=== PATIENT | male | born 1950 | race Caucasian/White ===

== ENCOUNTER 2017-11-20 12:45 | Inpatient (IN) | payer OTHER ==
[~2017-11-20] VITALS: Ht 177.8 cm; Wt 131.3 kg
--- NOTE | ~2017-11-20 | CON ---
[place], [place] REPORT OF CONSULTATION NAME: [id number] UNIT #: [id number] ROOM: 528 DOCTOR: NEVA VELÁSQUEZ MD BIRTHDATE: [birth year] DOS: 11/22/2017 HISTORY OF PRESENT ILLNESS: This is a 67-year-old -[place] man with a history of essential hypertension with blood pressure around 140 and 150s at home, diabetes mellitus type 2, asthma, fatty liver, anemia, but he has never had a heart attack, heart failure, rhythm disorder of the heart, cancer, stroke or kidney problems. He quit smoking 20 years ago and does not use alcoholic beverages, lives with his . He usually receives his care from [facility]. He apparently came to the hospital because of increasing shortness of breath of many days, but worse in the preceding 3 days. He had noticed swelling in the legs too, which really bothered him. He sleeps propped up and it is not clear if he has orthopnea or not. He does snore quite a bit at night. He has not had any chest pain or palpitations, dizziness or loss of consciousness. No seizure disorder. HOME MEDICATIONS: Include aspirin 81 daily, atorvastatin 20 daily, carvedilol 25 mg b.i.d., NovoLog and glargine insulin, lisinopril 20 b.i.d., metformin 1 g b.i.d., methadone 5 mg b.i.d. and Flomax 0.4 mg daily. PHYSICAL EXAMINATION: GENERAL: This reveals a patient who is very pleasant, alert, oriented. He is moderately obese. His complexion is fine. NECK: There is no thyromegaly. The thyroid gland is a little difficult to palpate because of short and large neck. JVP is normal. AJR is negative. VITAL SIGNS: Blood pressure 122/48, previous blood pressure was 149/70. CARDIAC: Auscultation with no murmurs or extra heart sounds. He had at least 1+ edema bilaterally and he tells me there is much more so than before he came to the hospital. RESPIRATORY: Breath sounds are diminished because of morbid obesity, but no adventitious sounds are present. DIAGNOSTIC STUDIES: ECG showed normal sinus rhythm at 80 beats per minute with frequent atrial ectopy. ST-T waves are normal. Early RV progression is noted, however. Last night, he had bradycardia and had a 3.8 second pause following PVC or aberrantly conducted P-wave. Chest x-ray was reviewed by me and it does not show any obvious pulmonary edema. Heart is of normal size. LABORATORY DATA: Troponin levels have been less than 0.015. BUN 7 and creatinine 0.97, potassium 4.5. Hemoglobin 11 g/dL. IMPRESSION: 1. Diastolic heart failure is a good possibility in this gentleman. He had an echocardiogram. I believe previous echocardiogram had shown normal left ventricular systolic function. 2. Severe bradycardia and 3.8 second pause through the night is of concern and [place], [place] REPORT OF CONSULTATION NAME: CLEVE GARCIAS UNIT #: [id number] ROOM: 528 DOCTOR: NEVA VELÁSQUEZ MD BIRTHDATE: [birth year] currently heart rate is fine. He had received his full dose of carvedilol. 3. Anemia. RECOMMENDATIONS: 1. IV furosemide is fine for the next day or a couple of days and then he should be on 40 mg p.o. along with potassium supplement. 2. Bradycardia and a 3.8 second pause was probably due to higher dose of beta antionette, therefore, carvedilol is being reduced to 12.5 mg b.i.d. 3. Hypertension, which does not seem to be controlled. Lisinopril is 40 mg daily, this should be continued. If blood pressure stays high in this diabetic, dose of lisinopril can be increased to 60 mg daily. The other alternative would be to use small dose of calcium channel antionette, i.e. amlodipine. I thank you for this consult. NEVA VELÁSQUEZ MD CM:CONSTR:REPORT OF CONSULTATION 1601 12/11/17 1014 interface
--- NOTE | ~2017-11-20 | PR ---
[place], [place] PROGRESS NOTE NAME: CLEVE GARCIAS UNIT #: [id number] ROOM: 528 DOCTOR: MAHIN DOMÍNGUEZ MD BIRTHDATE: [birth year] DOS: 11/24/2017 SUBJECTIVE: The patient examined and discussed with the nursing staff in detail: The patient appears to be comfortable. Heart rate and blood pressure is stable. He denies any chest discomfort, shortness of breath or palpitations. His heart rate is 67 and blood pressure is 123/49. No more evidence of bradycardia after decreasing dose of beta-blockers. Hemodynamically appears to be stable. REVIEW OF SYSTEMS: As per HPI, 6-8 systems reviewed, unchanged. PHYSICAL EXAMINATION: GENERAL: He is alert, oriented x 3. HEENT: Unremarkable. NECK: Supple, no JVD. LUNGS: Clear. HEART: Sounds are regular. ABDOMEN: Soft, nontender. NEUROLOGICAL: He appears to be stable. EXTREMITIES: About 1+ pitting edema. LABORATORY DATA: Sodium 137, potassium 4.4 and creatinine is 1. Hemoglobin 10.8 and hematocrit 35.5. IMPRESSION: Dyspnea on exertion, probable diastolic heart failure, ejection fraction was reported normal. Shortness of breath, diabetes mellitus, chronic obstructive pulmonary disease, hypertension, reactive airway disease, morbid obesity, thoracic disk herniation, anemia, eosinophilia. Cardiac status appears to be stable. Continue the Lasix. Medications have been adjusted. Heart rate is very well controlled now. He is on atorvastatin, Lasix, Protonix, lisinopril. After stopping the beta blockers heart rate has been improved. We will follow up. I reviewed the echocardiogram. Dr. Brown is going to dictate the full dictation of the echo, but preliminarily ejection fraction appears to be well preserved. No significant valvular abnormalities. Mild concentric left ventricular hypertrophy, suggestion of diastolic dysfunction. Please refer to the detailed echo report, which will be done by Dr. Brown. [place], [place] PROGRESS NOTE NAME: CLEVE GARCIAS UNIT #: [id number] ROOM: 528 DOCTOR: MAHIN DOMÍNGUEZ MD BIRTHDATE: [birth year] MAHIN MAGGE, MD CM:PNTRANS [id number] MAHIN DOMÍNGUEZ MD 11/24/17 1113 interface
--- NOTE | ~2017-11-20 | EKG ---
[place], [place] ELECTROCARDIOGRAM REPORT NAME: CLEVE GARCIAS UNIT #: [id number] ROOM: 528 DOCTOR: SEAN DRAFT REPORT BIRTHDATE: [birth year] [facility] Test Date: 2017-11-20 Test Time: 13:14:33 Pat Name: CLEVE GARCIAS Department: Room: 528 Gender: M Electronics Hardware Design Engineer: Windy Connolly : 1950 Requested By: ROSEANNA GLOVER Order Number: [id number] Reading MD: Shireen Brown MD Measurements Intervals [place] Rate: 81 P: -2 AL: 169 QRS: 22 QRSD: 98 T: 48 QT: 374 QTc: 434 Interpretive Statements Sinus rhythm with PACs Abnormal R-wave progression, early transition Electronically Signed On 11-22-2017 12:23:36 PDT by Shireen Brown MD CM:EKGRPT:ELECTROCARDIOGRAM REPORT 1314 1223 ROSEANNA GLOVER EPIPHANY DRAFT REPORT ROSEANNA GLOVER
[~2017-11-20 12:45] MED LIST: ADVAIR 250/501 EA INH; ASPIRIN81 MG PO; AUGMENTIN 875875 MG PO; BACTRIM DS 8001 TA1 PO; CIPRO500 MG PO; DOXYCYCLINE100 M3 PO; DUONEB 3 MG/3 ML3 M1 NEB; FINASTERIDE5 MG PO; FLOMAX0.4 MG PO; FLUTICASON0.05 MG/AC NAS; GLIPIZIDE10 MG PO; GUAIFEN/CODEIN120 ML PO; GUAIFENESIN400 MG PO; LANTUS SOL100 UNIT/1 SQ; LISINOPRIL10 MG PO; LISINOPRIL20 MG PO; LOPRESSOR25 MG PO; METFORMIN1000 MG PO; MORPHINE4 MG PO; MS CONTIN60 MG PO; NEBULIZER DEVI; OMEPRAZOLE20 MG PO; OXYCONTIN40 M1 PO; PREDNISONE10 MG PO; SIMVASTATIN40 MG PO; TERAZOSIN HCL5 M1 PO; TERAZOSIN1 MG PO; VICODIN ES 7501 TAB PO; VITAMIN D2000 IU PO; ZOFRAN ODT4 MG PO
[2017-11-20 12:49] VITALS: BP 142/72
[2017-11-20 13:33] LABS: BASO # 0.1 10*3/uL (0.0-0.1); BASO % 0.6 % (0.0-1.0); EOS # 0.4 10*3/uL (0.0-0.4); EOS % 4.6 % (1.0-4.0); HEMATOCRIT 35.3 % (42.0-52.0); HEMOGLOBIN 10.9 g/dl (14.0-18.0); LYMPH # 1.8 10*3/uL (1.3-4.4); MEAN CELL VOLUME 83.6 fl (80.0-94.0); MEAN CORPUSCULAR HGB 25.8 pg (27.0-31.0); MEAN CORPUSCULAR HGB CONC 30.9 g/dl (33.0-37.0); MEAN PLATELET VOLUME 10.5 fl (9.6-12.3); MONO # 0.8 10*3/uL (0.1-1.0); MONO % 8.9 % (3.0-9.0); NEUT # 5.8 10*3/uL (2.3-7.9); NEUT % 65.4 % (47.0-73.0); PLATELET COUNT AUTOMATED 242 10*3/uL (130-400); RED BLOOD COUNT 4.22 10*6/uL (4.50-5.90); RED CELL DISTRI WIDTH 15.6 % (0-14.5); WHITE BLOOD COUNT 8.8 10*3/uL (4.8-10.8)
[2017-11-20 13:47] LABS: ALBUMIN 3.6 gm/dl (3.1-4.5); ALKALINE PHOSPHATASE 89 U/L (45-117); BUN 17 mg/dl (7-24); CHLORIDE 105 mmol/L (98-107); CREATININE 0.97 mg/dL (0.70-1.30); POTASSIUM 4.5 mmol/L (3.5-5.1); SGOT/AST 22 IU/L (3-35); SGPT/ALT 43 U/L (12-78); SODIUM 140 mmol/L (136-145); TOTAL PROTEIN 7.1 gm/dL (6.4-8.2)
[2017-11-20 13:51] LABS: TROPONIN I < 0.015 ng/ml (<0.045)
[2017-11-20 14:13] VITALS: BP 148/60
[2017-11-20 15:09] VITALS: BP 153/69
[2017-11-20 16:00] VITALS: BP 142/76
[2017-11-20 16:45] VITALS: BP 129/77
[2017-11-20] MEDS ORDERED: ATORVASTATIN CA40 M1 PO (17:17)
[2017-11-20] MEDS ORDERED: CARVEDILOL25 MG PO (17:18)
[2017-11-20] MEDS ORDERED: METHADONE5 MG PO (17:19)
[2017-11-20] MEDS ORDERED: NOVOLOG10 ML SQ (17:27)
[2017-11-20 20:00] VITALS: BP 151/77
[2017-11-21] VITALS: BP 136/77
[2017-11-21 06:23] LABS: BASO % 0.4 % (0.0-1.0); EOS # 0.4 10*3/uL (0.0-0.4); EOS % 5.3 % (1.0-4.0); HEMATOCRIT 35.3 % (42.0-52.0); LYMPH # 1.7 10*3/uL (1.3-4.4); LYMPH % 23.1 % (27.0-41.0); MEAN CELL VOLUME 83.1 fl (80.0-94.0); MEAN CORPUSCULAR HGB 25.9 pg (27.0-31.0); MEAN CORPUSCULAR HGB CONC 31.2 g/dl (33.0-37.0); MEAN PLATELET VOLUME 10.2 fl (9.6-12.3); MONO # 0.8 10*3/uL (0.1-1.0); MONO % 10.6 % (3.0-9.0); NEUT # 4.3 10*3/uL (2.3-7.9); NEUT % 60.2 % (47.0-73.0); PLATELET COUNT AUTOMATED 239 10*3/uL (130-400); RED BLOOD COUNT 4.25 10*6/uL (4.50-5.90); RED CELL DISTRI WIDTH 15.9 % (0-14.5); WHITE BLOOD COUNT 7.2 10*3/uL (4.8-10.8)
[2017-11-21 06:49] LABS: ALBUMIN 3.5 gm/dl (3.1-4.5); ALKALINE PHOSPHATASE 88 U/L (45-117); BUN 20 mg/dl (7-24); CHLORIDE 98 mmol/L (98-107); CHOLESTEROL 105 mg/dL (<200); CREATININE 1.03 mg/dL (0.70-1.30); HDL CHOLESTEROL 46 mg/dl (40-60); LDL CHOLESTEROL 37 mg/dL (9-159); POTASSIUM 3.7 mmol/L (3.5-5.1); SGOT/AST 19 IU/L (3-35); SGPT/ALT 40 U/L (12-78); SODIUM 138 mmol/L (136-145); TOTAL PROTEIN 6.8 gm/dL (6.4-8.2); TRIGLYCERIDES 109 mg/dl (<150); VLDL CHOLESTEROL 22 mg/dL (6-40)
[2017-11-21 06:51] LABS: ACT PARTIAL THROMBO TIME 22.8 SECONDS (20.8-31.5)
[2017-11-21 08:00] VITALS: BP 122/74
[2017-11-21 08:10] VITALS: BP 122/68
[2017-11-21 08:46] LABS: VITAMIN D, 25-HYDROXY 29.1 ng/mL (30-100)
[2017-11-21 12:00] VITALS: BP 100/61
[2017-11-21 16:00] VITALS: BP 152/80
[2017-11-21 20:00] VITALS: BP 154/72; BP 157/70
[2017-11-22] VITALS: BP 149/70
[2017-11-22 12:00] VITALS: BP 122/48
[2017-11-22 16:00] VITALS: BP 139/71
[2017-11-22 20:00] VITALS: BP 125/80
[2017-11-23] VITALS: BP 139/68
[2017-11-23 06:08] LABS: BASO # 0.1 10*3/uL (0.0-0.1); BASO % 0.6 % (0.0-1.0); EOS # 0.4 10*3/uL (0.0-0.4); EOS % 4.8 % (1.0-4.0); HEMATOCRIT 35.5 % (42.0-52.0); HEMOGLOBIN 10.8 g/dl (14.0-18.0); LYMPH # 2.1 10*3/uL (1.3-4.4); MEAN CELL VOLUME 84.5 fl (80.0-94.0); MEAN CORPUSCULAR HGB 25.7 pg (27.0-31.0); MEAN CORPUSCULAR HGB CONC 30.4 g/dl (33.0-37.0); MEAN PLATELET VOLUME 10.4 fl (9.6-12.3); MONO # 0.8 10*3/uL (0.1-1.0); MONO % 10.5 % (3.0-9.0); NEUT # 4.5 10*3/uL (2.3-7.9); NEUT % 57.5 % (47.0-73.0); PLATELET COUNT AUTOMATED 227 10*3/uL (130-400); RED CELL DISTRI WIDTH 15.6 % (0-14.5); WHITE BLOOD COUNT 7.9 10*3/uL (4.8-10.8)
[2017-11-23 06:16] LABS: BUN 25 mg/dl (7-24); CHLORIDE 99 mmol/L (98-107); CREATININE 1.09 mg/dL (0.70-1.30); POTASSIUM 4.4 mmol/L (3.5-5.1); SODIUM 137 mmol/L (136-145)
[2017-11-23 08:00] VITALS: BP 138/60
[2017-11-23 16:00] VITALS: BP 106/61
[2017-11-23 20:00] VITALS: BP 137/58
[2017-11-24] VITALS: BP 123/49
[2017-11-24 08:27] VITALS: BP 144/72
[2017-11-24] MEDS ORDERED: COREG12.5 M1 PO (11:52)
[2017-11-24] MEDS ORDERED: LASIX40 MG PO (11:52)
[2017-11-24] MEDS ORDERED: K-TAB10 MEQ PO (11:52)
== END 2017-11-24 12:34 | disposition home or self-care (01) | DRG 291 ==
LOC: ED 12:45 → 5E 15:12 → EDHOLD 15:12 → 5E 15:54
PROVIDERS: Nurse Practitioner Family; Student in an Organized Health Care Education/Training Program
DX: I11.0 Hypertensive heart disease with heart failure (principal); I50.31 Acute diastolic (congestive) heart failure; E87.2 Acidosis; Z68.41 Body mass index [BMI] 40.0-44.9, adult; J45.20 Mild intermittent asthma, uncomplicated; M51.24 Other intervertebral disc displacement, thoracic region; E66.01 Morbid (severe) obesity due to excess calories; D64.9 Anemia, unspecified; D72.810 Lymphocytopenia; D72.1 Eosinophilia; R00.1 Bradycardia, unspecified; E11.9 Type 2 diabetes mellitus without complications; J44.9 Chronic obstructive pulmonary disease, unspecified; Z79.82 Long term (current) use of aspirin; Z79.84 Long term (current) use of oral hypoglycemic drugs; Z79.899 Other long term (current) drug therapy; Z87.01 Personal history of pneumonia (recurrent); Z98.52 Vasectomy status; Z83.3 Family history of diabetes mellitus

== ENCOUNTER → 2017-12-31 | Outpatient (CLI) | payer MEDICARE ==
[~2017-12-31] MED LIST changes: +ATORVASTATIN CA40 M1 PO; +CARVEDILOL25 MG PO; +COREG12.5 M1 PO; +K-TAB10 MEQ PO; +LASIX40 MG PO; +METHADONE5 MG PO; +NOVOLOG10 ML SQ
== END | disposition home or self-care (01) ==
LOC: US 09:50
DX: K80.20 Calculus of gallbladder without cholecystitis without obstruction (principal); K76.0 Fatty (change of) liver, not elsewhere classified; I11.0 Hypertensive heart disease with heart failure; I50.9 Heart failure, unspecified; J44.9 Chronic obstructive pulmonary disease, unspecified; E11.9 Type 2 diabetes mellitus without complications; R14.0 Abdominal distension (gaseous); Z79.4 Long term (current) use of insulin

== ENCOUNTER → 2018-07-02 | Outpatient (CLI) | payer OTHER | END | disposition home or self-care (01) | LOC: LAB 11:07 | DX: E87.5 Hyperkalemia (principal) ==

== ENCOUNTER → 2018-08-17 | Outpatient (CLI) | payer OTHER | END | disposition home or self-care (01) | LOC: RAD 09:37 | DX: M17.12 Unilateral primary osteoarthritis, left knee (principal); M51.37 Other intervertebral disc degeneration, lumbosacral region; M85.89 Other specified disorders of bone density and structure, multiple sites ==

== ENCOUNTER → 2019-12-06 | Outpatient (CLI) | payer OTHER | END | disposition home or self-care (01) | LOC: CARD 12:51 | PROVIDERS: ATTEND Nurse Practitioner Family | DX: I11.0 Hypertensive heart disease with heart failure (principal); I50.9 Heart failure, unspecified; E11.9 Type 2 diabetes mellitus without complications; R42 Dizziness and giddiness ==

== ENCOUNTER → 2021-05-02 | Outpatient (CLI) | payer OTHER | END | disposition home or self-care (01) | LOC: CARD 12:00 | PROVIDERS: ATTEND Nurse Practitioner Family | DX: I48.91 Unspecified atrial fibrillation (principal) ==

== ENCOUNTER → 2024-06-30 | Outpatient (CLI) | payer OTHER | END | disposition home or self-care (01) | LOC: CT 08:42 | PROVIDERS: ATTEND Internal Medicine | DX: R91.1 Solitary pulmonary nodule (principal); K76.0 Fatty (change of) liver, not elsewhere classified; K75.3 Granulomatous hepatitis, not elsewhere classified; E27.8 Other specified disorders of adrenal gland; I25.10 Atherosclerotic heart disease of native coronary artery without angina pectoris ==

== ENCOUNTER 2024-11-24 11:28 | Emergency (ER) | payer OTHER ==
[~2024-11-24] VITALS: Ht 147.3 cm; Wt 133.8 kg
[2024-11-24 13:42] LABS: BASO # 0.1 10*3/uL (0.0-0.1); BASO % 0.7 % (0.0-1.0); EOS # 0.7 10*3/uL (0.0-0.4); EOS % 7.2 % (1.0-4.0); MEAN CELL VOLUME 87.0 fl (80.0-94.0); MEAN CORPUSCULAR HGB 26.7 pg (27.0-31.0); MEAN PLATELET VOLUME 10.1 fl (9.6-12.3); MONO # 0.7 10*3/uL (0.1-1.0); MONO % 8.0 % (3.0-9.0); NEUT # 5.4 10*3/uL (2.3-7.9); NEUT % 58.4 % (47.0-73.0); NUCLEATED RED BLOOD CELL 0.0 % (0.0-0.0); NUCLEATED RED BLOOD CELL 0.0 10*3/uL (0.0-0.0); PLATELET COUNT AUTOMATED 275 10*3/uL (130-400); RED CELL DISTRI WIDTH 15.1 % (0-14.5)
[2024-11-24 14:00] LABS: BUN 27 mg/dl (9-23)
[2024-11-24] MEDS ORDERED: ZITHROMAX250 MG PO (14:45)
[2024-11-24] MEDS ORDERED: AZITHROMYCIN 250 MG TAB PO ONE (14:45)
== END 2024-11-24 15:04 | disposition home or self-care (01) ==
LOC: ED 11:28
PROVIDERS: Nurse Practitioner Family
DX: J20.9 Acute bronchitis, unspecified (principal); E11.9 Type 2 diabetes mellitus without complications; I48.91 Unspecified atrial fibrillation; I11.0 Hypertensive heart disease with heart failure; I50.9 Heart failure, unspecified; Z87.891 Personal history of nicotine dependence; Z79.899 Other long term (current) drug therapy; Z79.4 Long term (current) use of insulin; Z79.82 Long term (current) use of aspirin; Z79.84 Long term (current) use of oral hypoglycemic drugs